=== PATIENT | female | born 1990 | race Hispanic/Latino ===

== ENCOUNTER 2017-01-15 19:29 | Emergency (ER) | payer OTHER ==
[2017-01-15 19:30] VITALS: BMI 21.4
[2017-01-15 19:55] VITALS: BP 124/87; PULSE 78; RESP 16; TEMP 97.7; O2SAT 99
--- NOTE | 2017-01-15 21:08 | ED PDOC ---
Upper Extremity Pain/Injury Time Seen by Provider: 01/15/17 20:03 Chief Complaint (Nursing): Upper Extremity Problem/Injury Chief Complaint (Provider): finger lac History Per: Patient Additional Complaint(s): pt states she cut her R 2nd finger on [employer]. now c/o lac to same. no numbness, weakness distally or other injury. tetanus utd. Past Medical History Reviewed: Historical Data, Nursing Documentation, Vital Signs Vital Signs: Last Vital Signs Temp 97.7 F 01/15/17 19:53 Pulse 78 01/15/17 19:53 Resp 16 01/15/17 19:53 BP 124/87 01/15/17 19:53 Pulse Ox 99 01/15/17 19:53 - Medical History PMH: No Chronic Diseases - Family History Family History: States: No Known Family Hx - Social History Current smoker - smoking cessation education provided: No Alcohol: None - Immunization History Hx Tetanus Toxoid Vaccination: No Hx Influenza Vaccination: No - Home Medications Home Medications: Ambulatory Orders Medication Instructions Recorded Emtricitabine/Tenofovir Diso 1 tab PO DAILY #27 tab 07/06/16 [Truvada 200 MG-300 MG] Raltegravir Potassium [Isentress] 400 mg PO BID #54 tab 07/06/16 - Allergies Allergies/Adverse Reactions: Allergies Allergy/AdvReac Type Severity Reaction Status Date / Time No Known Allergies Allergy Verified 07/06/16 17:06 Review of Systems ROS Statement: Except As Marked, All Systems Reviewed And Found Negative Skin: Positive for: Lesions Physical Exam - Reviewed Nursing Documentation Reviewed: Yes Vital Signs Reviewed: Yes - Physical Exam Appears: Positive for: Well, Non-toxic, No Acute Distress Skin: Positive for: Normal Color, Warm, DRY Extremity: Positive for: Other (R 2nd finger 1cm superficial lac lateral to mcp. no deep structure involvement. flex/ext 5/5. n/v intact distally. ) Neurologic/Psych: Positive for: Alert, Oriented. Negative for: Motor/Sensory Deficits - ECG O2 Sat by Pulse Oximetry: 99 Procedures - Laceration/Wound Repair Finger Wound Length (cm): 1 Wound's Depth, Shape: superficial Wound Explored: clean Irrigated w/ Saline (ccs): 500 Wound Repaired With: Steri-strips, Skin adhesive Wound Complexity: Simple Sterile Dressing Applied?: Yes Progress: pt tolerated well. no complications. Disposition - Clinical Impression Clinical Impression: Finger laceration - Patient ED Disposition Is Patient to be Admitted: No - Disposition Referrals: Trenton Zuniga MD [Staff Provider] - Disposition: Routine/Home Disposition Time: 21:09 Condition: GOOD Additional Instructions: keep wound clean and dry. cover with dressing daily. glue should fall off on its own in about one week. f/u pmd for further care. return to ED for severe symptoms. Instructions: Finger Laceration (ED)
== END 2017-01-15 20:34 | disposition home or self-care (01) ==
LOC: H.ER 19:29
DX: S61.219A Laceration without foreign body of unspecified finger without damage to nail, initial encounter (principal); W26.0XXA Contact with knife, initial encounter; Y92.89 Other specified places as the place of occurrence of the external cause